=== PATIENT | male | born 1935 | race Caucasian/White ===

== ENCOUNTER 2020-12-08 05:40 | Day surgery (SDC) | payer OTHER, BC ==
[2020-12-05 11:16] VITALS: BMI 21.5
[2020-12-08] MEDS ORDERED: MIDAZOLAM HCL 2 MG/2 ML SINGLE DOSE VIAL ONE (07:48)
[2020-12-08] MEDS ORDERED: LIDOCAINE HCL/PF 2% SDV 5ML VIAL ONE (08:07)
[2020-12-08] MEDS ORDERED: ONDANSETRON 4 MG/2 ML VIAL IVPUSH PRN (08:20)
[2020-12-08] MEDS ORDERED: ACETAMINOPHEN 325 MG TABLET (FP) PO PRN (08:20)
[2020-12-08] MEDS ORDERED: PROPOFOL 20 ML ONE ×2 (08:20)
[2020-12-08] MEDS ORDERED: LACTATED RINGERS SOLUTION 1,000 ML IV SCH (08:30)
[2020-12-08 11:33] VITALS: BP 110/50; PULSE 50; TEMP 97.9
== END 2020-12-08 10:05 | disposition home or self-care (01) ==
LOC: JASU-SURG 05:40
PROVIDERS: ATTEND Urology
PROC: 0TF3XZZ Fragmentation in Right Kidney Pelvis, External Approach (ICD-10-PCS; principal; 2020-12-08 08:00)
DX: N20.0 Calculus of kidney (principal)